=== PATIENT | female | born 1995 | race Caucasian/White ===

== ENCOUNTER 2020-11-19 20:51 | Emergency (ER) | payer OTHER ==
[~2020-11-19] VITALS: Ht 152.4 cm; Wt 54.5 kg
[2020-11-19 21:12] VITALS: BP 131/70; PULSE 82; TEMP 98.8
[2020-11-19] MEDS ORDERED: FLEXERIL 1010 MG/TAB PO (21:29)
== END 2020-11-19 22:00 | disposition home or self-care (01) ==
LOC: COL.ER 20:51
DX: S16.1XXA Strain of muscle, fascia and tendon at neck level, initial encounter (principal); S39.012A Strain of muscle, fascia and tendon of lower back, initial encounter; S80.01XA Contusion of right knee, initial encounter; Z88.6 Allergy status to analgesic agent; V89.2XXA Person injured in unspecified motor-vehicle accident, traffic, initial encounter